=== PATIENT | female | born 2000 | race Caucasian/White ===

== ENCOUNTER 2021-03-15 18:52 | Emergency (ER) | payer OTHER ==
[~2021-03-15] VITALS: Ht 167.6 cm; Wt 63.0 kg
[2021-03-15] MEDS ORDERED: IBUPROFEN 600 MG TABLET. PO ONE (19:45)
--- NOTE | 2021-03-15 20:09 | RAD ---
Study: XR EXAM OF ANKLE_RIGHT 3VIEWS Indication: Inversion injury. Pain and swelling. Comparison: None. Findings: Edematous soft tissues primarily at the lateral ankle. No acute fracture is identified. Alignment is within normal limits but not fully assessed without weightbearing. Unremarkable talar dome. The parti ally imaged foot is intact. Impression: Edematous soft tissues mainly at the lateral ankle but no fracture is identified or traumatic malalig nment. If there is ongoing inability to bear weight consider follow-up weightbearing radiographs in 2 weeks. Electronically signed by: LEI BARDALES MD (03/15/2021 8:07 PM) [facility]
--- NOTE | 2021-03-15 20:14 | PHYS DOC ---
Past History Past Surgical History: Other Additional Past Surgical Histo: wisdom teeth Alcohol Use: Occasionally General Adult EDM: Chief Complaint: ANKLE PROBLEM HPI: HPI: Patient is a [5-year-old female coming in for right ankle pain and swelling. Patient states she was playing basketball when she came down and felt her right foot rolled inward. Has not attempted to bear weight since. Has had previous sprains this ankle surgeries. Otherwise has been well Review of Systems: Review of Systems: All other systems within normal limits except for as noted in the HPI Current Medications: Current Meds: Current Medications Medications (Trade) Dose Ordered Sig/Jamie Start Time Stop Time Status Last Admin Dose Admin Ibuprofen (Motrin) 600 mg 1X ONCE 03/15/21 19:45 03/15/21 19:46 DC 03/15/21 19:51 600 MG Allergies: Allergies: Allergies Coded Allergies Type Severity Reaction Last Updated Verified hydrocodone Allergy Severe Rash 03/15/21 Yes Physical Exam: PE: Constitutional: Well developed, well nourished, no acute distress, non-toxic ap pearance. [] HENT: Normocephalic, atraumatic, bilateral external ears normal, nose normal. [] Eyes: PERRLA, conjunctiva normal, no discharge. [] Neck: No rigidity, supple, no stridor. [] Cardiovascular: Regular rate and rhythm, brisk cap refill [] Lungs & Thorax: Non labored symmetric respirations, no tachypnea or respiratory distress [] Abdomen: Soft, nondistended. Skin: Warm, dry, no erythema, no rash. [] Back: Unremarkable Extremities: No deformities, range of motion grossly intact, no lower extremity edema. Swelling and tenderness over right lateral malleolus, no tenderness of the tarsal calcaneus. No tenderness on tib-fib squeeze test. [] Neurologic: Alert and oriented X 3, no focal deficits noted. [] Psychologic: Affect normal, judgement normal, mood normal. [] Current Patient Data: Labs: Laboratory Tests Test 03/15/21 19:24 POC Urine HCG, Qualitative hcg negative (Negative) Vital Signs: Vital Signs Date Time Temp Pulse Resp B/P (MAP) Pulse Ox O2 Delivery O2 Flow Rate FiO2 03/15/21 18:52 97.8 71 18 109/69 (82) 99 Room Air EKG: EKG: [] Radiology/Procedures: Radiology/Procedures: [address] [id number] IMAGING REPORT Signed PATIENT: AYLEEN GARCIA ACCOUNT: [id number] : 2000 LOCATION: ER AGE: 20 SEX: F EXAM STATUS: REG ER ORD. PHYSICIAN: LOUISE CURTIS MD REASON: Right inversion injury, pain and swelling to right ankle PROCEDURE: ANKLE RIGHT 3V Study: XR EXAM OF ANKLE_RIGHT 3VIEWS Indication: Inversion injury. Pain and swelling. Comparison: None. Findings: Edematous soft tissues primarily at the lateral ankle. No acute fracture is identified. Alignment is within normal limits but not fully assessed without weightbearing. Unremarkable talar dome. The partially imaged foot is intact. Impression: Edematous soft tissues mainly at the lateral ankle but no fracture is identified or traumatic malalignment. If there is ongoing inability to bear weight consider follow-up weightbearing radiographs in 2 weeks. Electronically signed by: LEI BARDALES MD (03/15/2021 8:07 PM) [facility] DICTATED AND SIGNED BY: LEI BARDALES MD DATE: 03/15/212005 CC: LOUISE CURTIS MD; PCP,NO ~MTH0 0 [] Heart Score: C/O Chest Pain: No Risk Factors: Risk Factors: DM, Current or recent (<one month) smoker, HTN, HLP, family history of CAD, obesity. Risk Scores: Score 0 - 3: 2.5% MACE over next 6 weeks - Discharge Home Score 4 - 6: 20.3% MACE over next 6 weeks - Admit for Clinical Observation Score 7 - 10: 72.7% MACE over next 6 weeks - Early Invasive Strategies Course & Med Decision Making: Course & Med Decision Making Pertinent Labs and Imaging studies reviewed. (See chart for details) [] Dragon Disclaimer: Dragon Disclaimer: This electronic medical record was generated, in whole or in part, using a voice recognition dictation system. Departure Departure: Impression: Primary Impression: Right ankle sprain Disposition: HOME / SELF CARE / HOMELESS Condition: STABLE Referrals: PCP,NO (PCP) Patient Instructions: RICE - Routine Care for Injuries LOUISE CURTIS MD Mar 15, 2021 20:14
[2021-03-15 20:26] VITALS: BP 114/77
== END 2021-03-15 20:25 | disposition home or self-care (01) ==
LOC: ER 18:52
DX: S93.401A Sprain of unspecified ligament of right ankle, initial encounter (principal); Z88.5 Allergy status to narcotic agent; X50.9XXA Other and unspecified overexertion or strenuous movements or postures, initial encounter; Y93.67 Activity, basketball; Y92.89 Other specified places as the place of occurrence of the external cause; Y99.8 Other external cause status
CPT/HCPCS: 73610; 81025; 99283

== ENCOUNTER 2021-05-27 02:55 | Emergency (ER) | payer OTHER ==
[2021-05-27] MEDS ORDERED: KETOROLAC 30 MG/ML VIAL. ONE (03:36)
[2021-05-27] MEDS ORDERED: ONDANSETRON ODT 4 MG TAB.RAPDIS ONE (03:36)
[2021-05-27] MEDS ORDERED: ONDANSETRON 4MG ODT 4TABLET STARTPACK. PO ONE (04:33)
[2021-05-27] MEDS ORDERED: ACETAMINOPHEN/CODEINE 300/30MG 4TABLET STARTPACK. PO ONE (04:33)
[2021-05-27 05:41] LABS: BACTERIA,URINE FEW /HPF (0-FEW); CLARITY,URINE CLEAR; COLOR,URINE YELLOW; GLUCOSE,URINE NEG (NEG); NITRITE,URINE NEG (NEG); RBC,URINE >40 /HPF (0-2); SQUAMOUS EPITHELIAL CELL,UR FEW /LPF; UROBILINOGEN,URINE 0.2 mg/dL (0.2 mg/dL); WBC,URINE OCC /HPF (0-4)
--- NOTE | 2021-05-27 06:13 | RAD ---
Exam: CT abdomen/pelvis without intravenous contrast Indication: Severe right flank pain and abdominal pain Comparison: None Technique: Helical CT imaging performed of the abdomen and pelvis without the use of intravenous cont rast. Sagittal and coronal reformats were obtained. One or more of the following individualized dose reduction techniques were utilized for this examinat ion: 1. Automated exposure control 2. Adjustment of the mA and/or kV according to patient size 3. Use of iterative reconstruction technique. Findings: Inherently limited evaluation without intravenous contrast. Lower chest: Normal. Liver: Normal. Gallbladder/Biliary Tree: Normal. Pancreas: Normal. Spleen: Normal Adrenal Glands: Normal. Kidneys/Ureters/Bladder: Mild right hydronephrosis due to a 3 mm calculus near the right ureterovesic ular junction. No nephrolithiasis. The left kidney, ureter, and bladder are normal. Reproductive Organs: Normal. Stomach, small bowel, and colon: Stomach, small bowel, appendix, and colon are normal. Vasculature: No aortic aneurysm. Lymph Nodes: No lymphadenopathy. Peritoneum and retroperitoneum: No free fluid or free air. Bones: No acute osseous abnormalities. Miscellaneous: None. IMPRESSION: Mild right hydronephrosis due to a 3 mm calculus near the right ureterovesicular junction . Findings were discussed by Dr. Garcia with Dr. Patel at the time of the exam. Electronically signed by: Radha Garcia MD (05/27/2021 6:11 AM) [facility]
== END 2021-05-27 04:38 | disposition home or self-care (01) ==
LOC: ER 02:55
DX: N13.2 Hydronephrosis with renal and ureteral calculous obstruction (principal)
CPT/HCPCS: 74176; 81001; 81025; 96372; 99284